=== PATIENT | female | born 1980 | race Caucasian/White ===

== ENCOUNTER 2017-04-08 14:48 | Emergency (ER) | payer OTHER ==
[~2017-04-08] VITALS: Ht 152.4 cm; Wt 62.7 kg
[2017-04-08 14:59] VITALS: BP 107/64
== END 2017-04-08 15:42 | disposition home or self-care (01) ==
LOC: ED 14:48
DX: S40.011A Contusion of right shoulder, initial encounter (principal); X58.XXXA Exposure to other specified factors, initial encounter; Y93.89 Activity, other specified; Y92.89 Other specified places as the place of occurrence of the external cause; Y99.8 Other external cause status

== ENCOUNTER 2018-01-12 20:17 | Inpatient (IN) | payer OTHER ==
[~2018-01-12] VITALS: Ht 152.4 cm; Wt 63.1 kg
[2018-01-12 20:30] VITALS: Ht 152.4 cm; Wt 63.1 kg
[2018-01-12 21:53] LABS: BASOPHIL % 0.5 % (0-2); PLATELET COUNT 309 x10^3mcL (130-400)
[2018-01-12 22:12] LABS: CALCIUM 9.1 mg/dL (8.5-10.1); CARBON DIOXIDE 25.3 mmol/L (21-32); CHLORIDE SERUM 101 mmol/L (98-107); CREATININE SERUM 0.6 mg/dL (0.6-1.0); GFR1 > 60 mL/min; GLUCOSE SERUM 98 mg/dL (74-106); POTASSIUM SERUM 3.5 mmol/L (3.5-5.1); SODIUM SERUM 136 mmol/L (136-145)
[2018-01-12 22:18] LABS: ALBUMIN 3.9 g/dL (3.4-5.0); ALKALINE PHOSPHATASE 68 U/L (46-116); ALT/SGPT 20 U/L (14-59); AST/SGOT 16 U/L (15-37); BILIRUBIN TOTAL 0.3 mg/dL (0.20-1.00); LIPASE 68 IU/L (73-393); TOTAL PROTEIN, SERUM 7.8 g/dL (6.4-8.2)
[2018-01-13 00:05] LABS: T3 TOTAL 0.94 ng/mL
[2018-01-13 00:49] LABS: CHOLESTEROL/HDL RATIO 2.9; PHOSPHOROUS 3.8 mg/dL (2.5-4.9)
[2018-01-13 01:02] VITALS: BP 112/74
[2018-01-13 01:29] LABS: FREE T4 1.17 ng/dL (0.76-1.46); FREE THYROXINE INDEX 2.7 ug/dL (1.4-4.5); T4(THYROXINE) 8.2 ug/dL (4.7-13.3)
[2018-01-13 01:36] LABS: microscopic required? NO
[2018-01-13 01:53] LABS: UA SPECIFIC GRAVITY 1.015 (1.005-1.035); urine erythrocyte NEGATIVE (NEGATIVE)
[2018-01-13 01:59] LABS: AMPHETAMINE QUAL UR NONE DETECTED (NEG <=1000)
[2018-01-13 04:41] LABS: BASOPHIL % 0.2 % (0-2); PLATELET COUNT 266 x10^3mcL (130-400); RED CELL DISTRIBUTION WIDTH 13.3 % (11.5-14.5)
[2018-01-13 04:49] LABS: CALCIUM 8.2 mg/dL (8.5-10.1); CARBON DIOXIDE 27.6 mmol/L (21-32); CHLORIDE SERUM 105 mmol/L (98-107); CREATININE SERUM 0.6 mg/dL (0.6-1.0); GFR1 > 60 mL/min; GLUCOSE SERUM 121 mg/dL (74-106); POTASSIUM SERUM 3.3 mmol/L (3.5-5.1); SODIUM SERUM 141 mmol/L (136-145)
[2018-01-13 05:56] VITALS: BP 90/58
[2018-01-13 13:07] VITALS: BP 89/57
[2018-01-13 17:29] VITALS: BP 92/55
[2018-01-13 21:01] VITALS: BP 98/64
[2018-01-14 05:49] VITALS: BP 96/59
[2018-01-14 06:22] LABS: BASOPHIL % 0.2 % (0-2); PLATELET COUNT 263 x10^3mcL (130-400); RED CELL DISTRIBUTION WIDTH 13.8 % (11.5-14.5)
[2018-01-14 06:24] LABS: CALCIUM 8.6 mg/dL (8.5-10.1); CARBON DIOXIDE 25.7 mmol/L (21-32); CHLORIDE SERUM 109 mmol/L (98-107); CREATININE SERUM 0.5 mg/dL (0.6-1.0); GFR1 > 60 mL/min; GLUCOSE SERUM 92 mg/dL (74-106); POTASSIUM SERUM 3.6 mmol/L (3.5-5.1); SODIUM SERUM 140 mmol/L (136-145)
[2018-01-14 08:58] VITALS: BP 108/63
[2018-01-14 13:23] VITALS: BP 101/59
[2018-01-14 16:23] VITALS: BP 103/64
[2018-01-14 21:34] VITALS: BP 111/68
[2018-01-14 21:37] VITALS: BP 98/54
[2018-01-15 05:37] VITALS: BP 100/54
[2018-01-15 09:44] VITALS: BP 111/68
[2018-01-15 12:48] VITALS: BP 113/77
[2018-01-15 14:24] VITALS: BP 113/77
[2018-01-15] MEDS ORDERED: APAP/HYDROCODON1 T15 PO (15:00)
[2018-01-15] MEDS ORDERED: ONDANSETRON4 M3 PO (15:05)
[2018-01-15] MEDS ORDERED: COL100 PO (15:13)
[2018-01-15 17:11] VITALS: BP 99/54
== END 2018-01-15 17:25 | disposition home or self-care (01) | DRG 225 ==
LOC: ED 20:17 → MU 23:08 → DU 23:08 → MU 01-14 11:10
PROVIDERS: Emergency Medicine; Family Medicine
PROC: 0DTJ4ZZ Resection of Appendix, Percutaneous Endoscopic Approach (ICD-10-PCS; principal; 2018-01-12)
DX: K35.80 Unspecified acute appendicitis (principal); E87.6 Hypokalemia; D64.9 Anemia, unspecified; Z53.29 Procedure and treatment not carried out because of patient's decision for other reasons; R73.03 Prediabetes
CPT/HCPCS: 83880; 84439; 90658; 94150; J0330; J1170; J1885; J2270; J2405; J2543; J2704; J2710; J3010; J3490; J7030; J7120; Q0092; Q0162

== ENCOUNTER 2018-08-22 06:06 | Emergency (ER) | payer OTHER ==
[~2018-08-22] VITALS: Ht 152.4 cm; Wt 68.5 kg
[~2018-08-22 06:06] MED LIST: APAP/HYDROCODON1 T15 PO; COL100 PO; ONDANSETRON4 M3 PO
[2018-08-22 06:11] VITALS: Ht 152.4 cm; Wt 68.5 kg
[2018-08-22 07:01] LABS: BASOPHIL % 0.4 % (0-2); PLATELET COUNT 305 x10^3mcL (130-400); RED CELL DISTRIBUTION WIDTH 14.3 % (11.5-14.5)
[2018-08-22 07:02] LABS: CALCIUM 8.6 mg/dL (8.5-10.1); CARBON DIOXIDE 25.7 mmol/L (21-32); CHLORIDE SERUM 104 mmol/L (98-107); CREATININE SERUM 0.5 mg/dL (0.6-1.0); GFR1 > 60 mL/min; GLUCOSE SERUM 104 mg/dL (74-106); POTASSIUM SERUM 3.7 mmol/L (3.5-5.1); SODIUM SERUM 138 mmol/L (136-145)
[2018-08-22 07:07] LABS: ALBUMIN 3.6 g/dL (3.4-5.0); ALKALINE PHOSPHATASE 68 U/L (46-116); ALT/SGPT 42 U/L (14-59); AST/SGOT 24 U/L (15-37); BILIRUBIN TOTAL 0.3 mg/dL (0.20-1.00); TOTAL PROTEIN, SERUM 7.6 g/dL (6.4-8.2)
[2018-08-22 08:22] VITALS: BP 107/57
== END 2018-08-22 08:22 | disposition home or self-care (01) ==
LOC: ED 06:06
PROVIDERS: Emergency Medicine
DX: G44.209 Tension-type headache, unspecified, not intractable (principal); G56.01 Carpal tunnel syndrome, right upper limb; Z90.89 Acquired absence of other organs
CPT/HCPCS: 36415; J1885